=== PATIENT | female | born 1995 | race African-American/Black ===

== ENCOUNTER 2018-08-17 22:57 | Emergency (ER) | payer OTHER ==
[~2018-08-17] VITALS: Ht 160 cm; Wt 66.0 kg
[2018-08-17 23:54] LABS: CLARITY URINE TURBID (CLEAR); COLOR URINE DARK YELLOW (YELLOW); KETONES URINE TRACE (NEGATIVE); LEUKOCYTE ESTERASE URINE 3+ (NEGATIVE); NITRITE URINE POSITIVE (NEGATIVE); OCCULT BLOOD URINE 3+ (NEGATIVE); PH URINE 6.5 (4.5-8.0); PROTEIN URINE 3+ (NEGATIVE); SPECIFIC GRAVITY URINE 1.029 (1.005-1.030)
[2018-08-18] MEDS ORDERED: PHENAZOPYRIDINE HCL 100MG TABLET PO ONE (02:30)
[2018-08-18] MEDS ORDERED: CEPHALEXIN 250MG CAPSULE PO ONE (02:30)
[2018-08-18 03:16] VITALS: BP 101/63
== END 2018-08-18 03:22 | disposition home or self-care (01) ==
LOC: ER 22:57
DX: N39.0 Urinary tract infection, site not specified (principal)
CPT/HCPCS: 81025; 87077; 87186; 99284

== ENCOUNTER 2019-10-22 05:26 | Emergency (ER) | payer OTHER ==
[~2019-10-22] VITALS: Ht 160 cm; Wt 68.6 kg
[2019-10-22] MEDS ORDERED: CEFTRIAXONE SODIUM 250 MG/VIAL IM ONE (06:30)
[2019-10-22] MEDS ORDERED: AZITHROMYCIN 500 MG TABLET PO ONE (06:30)
[2019-10-22 07:11] LABS: CLARITY URINE CLEAR (CLEAR); COLOR URINE YELLOW (YELLOW); KETONES URINE NEGATIVE (NEGATIVE); LEUKOCYTE ESTERASE URINE 1+ (NEGATIVE); NITRITE URINE NEGATIVE (NEGATIVE); OCCULT BLOOD URINE 2+ (NEGATIVE); PROTEIN URINE NEGATIVE (NEGATIVE); SPECIFIC GRAVITY URINE 1.024 (1.005-1.030)
[2019-10-22 08:03] VITALS: BP 111/64
[2019-10-26 07:10] LABS: CHLAMYDIA TRACHOMATIS NAA Negative (Negative); NEISSERIA GONORRHOEAE NAA Negative (Negative)
== END 2019-10-22 08:06 | disposition home or self-care (01) ==
LOC: ER 05:26
DX: R30.0 Dysuria (principal); R35.0 Frequency of micturition
CPT/HCPCS: 81003; 87086; 87491; 87591; 96372; 99283; J0696; Z7610

== ENCOUNTER 2021-10-04 22:10 | Emergency (ER) | payer OTHER ==
[~2021-10-04] VITALS: Ht 160 cm; Wt 59.0 kg
[2021-10-04 22:37] VITALS: BP 129/79
[2021-10-05] MEDS ORDERED: FLUT9.9S BOTHNSTRLS (00:09)
== END 2021-10-05 00:30 | disposition home or self-care (01) ==
LOC: ER 22:10
DX: R07.0 Pain in throat (principal); R09.81 Nasal congestion; R09.82 Postnasal drip
CPT/HCPCS: 99283

== ENCOUNTER 2021-12-08 13:28 | Emergency (ER) | payer MEDICAID, OTHER ==
[~2021-12-08] VITALS: Ht 160 cm; Wt 61.0 kg
[~2021-12-08 13:28] MED LIST: FLUT9.9S BOTHNSTRLS
[2021-12-08] MEDS ORDERED: ONDANSETRON 4MG ODT PO STA (13:37)
[2021-12-08 14:12] LABS: BASOPHILS % 0.5 % (0.0-2.0); EOSINOPHILS % 0.6 % (0.0-5.0); HEMATOCRIT. 39.7 % (36.0-48.0); HEMOGLOBIN. 13.3 g/dL (12.0-16.0); LYMPHOCYTES % 36.4 % (20.0-50.0); MEAN CORPUSCULAR HEMOGLOBIN 29.9 pg (28.0-32.0); MEAN CORPUSCULAR VOLUME 89.3 fL (81.0-99.0); MEAN PLATELET VOLUME 7.2 fl (7.4-10.4); MONOCYTES % 9.1 % (2.0-8.0); NEUTROPHILS % 53.4 % (40.0-76.0); PLATELET 335 x1000/uL (130-400); RED BLOOD CELL COUNT 4.45 mill/uL (4.2-5.4); RED CELL DISTRIBUTION WIDTH 13.9 % (11.6-14.6)
[2021-12-08 14:19] LABS: CHLORIDE 105 mEq/L (98-107)
[2021-12-08 18:12] LABS: CLARITY URINE CLOUDY (CLEAR); COLOR URINE DARK YELLOW (YELLOW); KETONES URINE TRACE (NEGATIVE); LEUKOCYTE ESTERASE URINE TRACE (NEGATIVE); NITRITE URINE NEGATIVE (NEGATIVE); OCCULT BLOOD URINE 3+ (NEGATIVE); PH URINE 5.5 (4.5-8.0); PROTEIN URINE TRACE (NEGATIVE); SPECIFIC GRAVITY URINE 1.027 (1.005-1.030)
[2021-12-08] MEDS ORDERED: CEPH500T MT (20:37)
[2021-12-08 20:49] VITALS: BP 116/67
== END 2021-12-08 20:50 | disposition home or self-care (01) ==
LOC: ER 13:28
DX: R10.9 Unspecified abdominal pain (principal); Z98.890 Other specified postprocedural states
CPT/HCPCS: 36415; 80053; 81003; 83690; 85025; 99283; Q0162

== ENCOUNTER 2023-02-07 20:08 | Emergency (ER) | payer MEDICAID, OTHER ==
[~2023-02-07] VITALS: Ht 160 cm; Wt 63.5 kg
[~2023-02-07 20:08] MED LIST changes: +CEPH500T MT; +PEG15DRO14 LEFTEYE
[2023-02-07 20:18] VITALS: BP 124/76
[2023-02-07] MEDS ORDERED: TETANUS, DIPHTHERIA, PERTUSSIS VAC/PF 0.5ML (>10YR OLD) IM ONE (22:00)
[2023-02-07] MEDS ORDERED: ACETAMINOPHEN 325MG TABLET PO ONE (22:00)
== END 2023-02-08 00:07 | disposition home or self-care (01) ==
LOC: ER 20:08
DX: S90.812A Abrasion, left foot, initial encounter (principal); S90.811A Abrasion, right foot, initial encounter; X58.XXXA Exposure to other specified factors, initial encounter; Y93.89 Activity, other specified; Y92.89 Other specified places as the place of occurrence of the external cause; Y99.8 Other external cause status
CPT/HCPCS: 73660; 90471; 90715; 99283

== ENCOUNTER 2023-12-03 20:11 | Emergency (ER) | payer SELFPAY ==
[~2023-12-03] VITALS: Ht 160 cm; Wt 64.0 kg
[2023-12-03 20:17] VITALS: BP 108/63; RESP 18; TEMP 97.8; O2SAT 98
[2023-12-03 20:18] VITALS: PULSE 94
[2023-12-03 20:55] LABS: CLARITY URINE CLEAR (CLEAR); COLOR URINE YELLOW (YELLOW); GLUCOSE URINE NEGATIVE (NEGATIVE); KETONES URINE NEGATIVE (NEGATIVE); LEUKOCYTE ESTERASE URINE 2+ (NEGATIVE); NITRITE URINE NEGATIVE (NEGATIVE); OCCULT BLOOD URINE NEGATIVE (NEGATIVE); PH URINE 7.5 (4.5-8.0); PROTEIN URINE NEGATIVE (NEGATIVE); SPECIFIC GRAVITY URINE 1.021 (1.005-1.030); UROBILINOGEN URINE 0.2 E.U./dL (0.2-1.0)
[2023-12-03 21:20] LABS: BACTERIA URINE 2+; RBC URINE 0-2 /hpf (0-2); SQUAMOUS EPITHELIAL CELL URINE 1+ /lpf (RARE/1+)
[2023-12-03] MEDS ORDERED: NITR100C MT (23:18)
[2023-12-04] MEDS ORDERED: CEFTRIAXONE SODIUM 500MG VIAL IM ONE
[2023-12-04] MEDS ORDERED: DOXY100C5 MT (00:09)
[2023-12-04] MEDS ORDERED: METR-167 MT (00:09)
[2023-12-07 04:10] LABS: CHLAMYDIA TRACHOMATIS NAA Negative (Negative); NEISSERIA GONORRHOEAE NAA Negative (Negative)
== END 2023-12-04 00:42 | disposition home or self-care (01) ==
LOC: ER 20:11
DX: B37.31 Acute candidiasis of vulva and vagina (principal)
CPT/HCPCS: 81003; 81025; 99284; 87491; 87591; 87210; 96372; J0696; Z7610